=== PATIENT | female | born 1980 | race Caucasian/White ===

== ENCOUNTER 2017-07-10 17:04 | Inpatient (IN) ==
[2017-07-10] MEDS: NS 1,000 ML IV SCH (19:52)
[2017-07-10] MEDS: PHENERGAN IV PRN (19:52)
[2017-07-10] MEDS: DEMEROL IV PRN (19:52)
[2017-07-10] MEDS: PROTONIX IV SCH (19:56)
[2017-07-10] MEDS: SODIUM CHLORIDE 0.9% INJ SCH (19:56)
[2017-07-10 22:26] LABS: MANUAL DIFF NEEDED? NO
[2017-07-10 22:33] LABS: BASO% 0.1 % (0.0-0.8); EOS# 0.11 X1000 (0.0-0.7); EOS% 0.8 % (0.0-10.0); HEMATOCRIT 36.8 % (37.0-47.0); HEMOGLOBIN 12.4 g/dL (12.0-16.0); IMM GRAN# 0.04 X1000 (0.0-0.04); IMM GRAN% 0.3 % (0.0-0.5); LYMPH# 5.51 X1000 (1.2-3.4); LYMPH% 41.2 % (20.5-51.1); MCH 30.8 PG (27-31); MCHC 33.7 g/dL (33-37); MCV 91.3 FL (81-99); MONO# 0.71 X1000 (0.11-0.59); MONO% 5.3 % (1.7-9.3); MPV 9.3 FL (7.4-10.4); NEUT% 52.3 % (42.2-75.2); PLT 323 X1000 (130-400); RBC 4.03 XMIL (4.2-5.4)
[2017-07-10 22:53] LABS: AGAP 14; ALBUMIN 4.1 g/dL (3.5-5.0); ALKALINE PHOSPHATASE 99 U/L (32-104); AMYLASE 32 U/L (20-200); BUN 11 mg/dL (8-22); CALCIUM 8.6 mg/dL (8.8-10.2); CHLORIDE 105 mmol/L (98-107); COSMO 283; GOT 63 U/L (10-30); GPT 112 U/L (10-36); POTASSIUM 3.9 mmol/L (3.5-5.1); SODIUM 143 mmol/L (136-145); TCO2 24 mmol/L (25-35); TOTAL BILIRUBIN 0.25 mg/dL (0.20-1.00); TOTAL PROTEIN 7.3 g/dL (6.3-8.3)
--- NOTE | 2017-07-10 22:53 | HISTORY AND PHYSICAL ---
CHIEF COMPLAINT: Intractable nausea, vomiting, abdominal pain, throwing up blood, black, melanotic stool. HISTORY OF PRESENT ILLNESS: She is a 35-year-old white female who was brought in my office with the mother with above symptoms. She recently was seen by Dr. Ordonez for kidney stones on the left side. Basically admitted to the hospital with evaluation of abdominal pain as well as rule out GI bleeding. She was seen before by Dr. Anat Archer. PAST MEDICAL HISTORY: Metabolic syndrome, chronic leukocytosis, acid reflux disease, surgical menopause, chronic pelvic floor dysfunction, irritable bowel syndrome with constipation, incontinence of urine, history of substance abuse, noncompliance, kidney stones recently by Dr. Ordonez. PAST SURGICAL HISTORY: Complete hysterectomy, breast reduction, cystocele repair, InterStim placement, failed, x1, port on the right side, previous colonoscopy/ EGD, by Dr. Alvarado and a history of lithotripsy on the left side. MEDICATIONS: Estradiol 2 mg daily, warfarin 1 mg daily, Linzess 290 mcg daily, Seroquel 200 mg at bedtime, Zebeta 5 mg daily, Prilosec 40 daily, Trileptal 300 p.o. b.i.d., Phenergan as needed. ALLERGIES: Reglan. Toradol. Morphine. SOCIAL HISTORY: . 1 child. No smoking. No alcohol. Living with her mother off and on. Now lives in [place]. FAMILY HISTORY: Mom is alive with diabetes. Father had hypertension, diabetes, acid reflux disease. REVIEW OF SYSTEMS: HEENT: No headache. No vision problem. No earache. No sore throat. Neck: No goiter. No lymphadenopathy. No bruit. Cardiopulmonary: No chest pain, shortness of breath, PND, orthopnea. GI: History of nausea, abdominal pain, throwing up blood, black melanotic stool. : No history of hesitancy, frequency. History of kidney stones. Extremities: No swelling of feet. No joint pains. Neurologic: No focal symptoms or weakness. PHYSICAL EXAMINATION: VITAL SIGNS: Afebrile. Hemodynamics are stable, 4 feet 11, 130 pounds. HEENT: Atraumatic, normocephalic. Pupils equal, reacting to light. NECK: Supple. CHEST: Clear to auscultation. HEART: Sounds are regular. ABDOMEN: Belly is soft, nontender. Good bowel sounds. No masses palpable. No signs of peritonitis. EXTREMITIES: No peripheral edema, cyanosis. NEUROLOGIC: No obvious neurological deficits. ASSESSMENT AND PLAN: 1. A 36-year-old, white female, admitted to the hospital with GI symptoms, possible upper gastrointestinal bleeding, impending dehydration. Plan is CBC, comprehensive metabolic and amylase. Nothing per oral. 2. IV fluids. DVT prophylaxis with Lovenox. Gastrointestinal prophylaxis, IV Protonix. Symptomatic treatment. Phenergan for nausea, meperidine for pain and slowly reconcile home medications. We will follow up on the pending labs. Based on that, further recommendations will be followed. cc: Esequiel Mckinnon MD
[2017-07-11] MEDS: PHENERGAN IV PRN ×4 (01:45→20:24)
[2017-07-11] MEDS: DEMEROL IV PRN ×4 (01:45→20:23)
[2017-07-11] MEDS: LOVENOX SUBQ SCH (08:13)
[2017-07-11] MEDS: NS 1,000 ML IV SCH (08:24)
[2017-07-11] MEDS: SODIUM CHLORIDE 0.9% INJ SCH (20:22)
[2017-07-11] MEDS: PROTONIX IV SCH (20:22)
[2017-07-12] MEDS: NS 1,000 ML IV SCH ×2 (00:25→13:11)
[2017-07-12] MEDS: PHENERGAN IV PRN ×4 (02:32→18:27)
[2017-07-12] MEDS: DEMEROL IV PRN ×4 (02:32→20:04)
--- NOTE | 2017-07-12 05:11 | PROGRESS NOTE ---
DATE: 07/11/2017 SUBJECTIVE: Patient complains of nausea and vomiting. REVIEW OF SYSTEMS: None reported. OBJECTIVE: Vital signs: On examination, vital signs are stable. I/O's are even. HEENT: Within normal limits. Neck: Supple. Chest: Clear. Heart: Sounds are regular. Abdomen: Belly is soft, nontender. Good bowel sounds. No masses palpable. No peripheral edema, cyanosis. No obvious neurological deficits. INVESTIGATIONS: CBC, white cell count 13, hematocrit 36. SMA 7 is normal. LFTs are slightly high. Amylase was normal. ASSESSMENT AND PLAN: Nausea, vomiting, abdominal pain, and questionable bleeding: Clinical exam is benign. Symptoms are out of proportion to the objective findings. Continue to monitor CBC, SMA 7 for the next few days. Continue to keep on nothing by mouth with IV hydration except for popsicles. Deep vein thrombosis prophylaxis with Lovenox and Phenergan for nausea. LEVEL OF DOCUMENTATION: Fifteen minutes. cc: Esequiel Mckinnon MD
[2017-07-12 06:47] LABS: MANUAL DIFF NEEDED? NO
[2017-07-12 06:51] LABS: BASO% 0.2 % (0.0-0.8); EOS# 0.18 X1000 (0.0-0.7); HEMATOCRIT 35.3 % (37.0-47.0); HEMOGLOBIN 12.1 g/dL (12.0-16.0); IMM GRAN# 0.02 X1000 (0.0-0.04); IMM GRAN% 0.2 % (0.0-0.5); LYMPH# 4.88 X1000 (1.2-3.4); MCH 31.4 PG (27-31); MCHC 34.3 g/dL (33-37); MCV 91.7 FL (81-99); MONO# 0.58 X1000 (0.11-0.59); MONO% 6.5 % (1.7-9.3); MPV 9.4 FL (7.4-10.4); NEUT% 36.1 % (42.2-75.2); PLT 275 X1000 (130-400); RBC 3.85 XMIL (4.2-5.4)
[2017-07-12 07:07] LABS: AGAP 11; BUN 7 mg/dL (8-22); CALCIUM 8.3 mg/dL (8.8-10.2); CHLORIDE 107 mmol/L (98-107); COSMO 281; POTASSIUM 3.9 mmol/L (3.5-5.1); SODIUM 143 mmol/L (136-145); TCO2 25 mmol/L (25-35)
[2017-07-12] MEDS: LOVENOX SUBQ SCH (08:07)
--- NOTE | 2017-07-12 09:01 | Diag Imaging Result Doc PS360 ---
EXAM: ABDOMEN FLAT/UPRIGHT HISTORY: pain TECHNIQUE: Flat and upright abdomen COMMENT: There is a fairly large amount of stool in the ascending colon. This is actually improved since 05/02/2017 however. There is no evidence of organomegaly or mass. The stomach is not distended. IMPRESSION: Improved constipation since 05/02/2017. Electronically signed by Gian Little 07/12/2017 8:58 AM
[2017-07-12] MEDS: PROTONIX IV SCH (20:04)
[2017-07-12] MEDS: SODIUM CHLORIDE 0.9% INJ SCH (20:04)
[2017-07-13] MEDS: NS 1,000 ML IV SCH ×2 (01:44→15:28)
[2017-07-13] MEDS: PHENERGAN IV PRN ×4 (02:22→20:47)
[2017-07-13] MEDS: DEMEROL IV PRN ×4 (02:23→20:47)
[2017-07-13 06:29] LABS: MANUAL DIFF NEEDED? NO
[2017-07-13 06:35] LABS: BASO% 0.2 % (0.0-0.8); EOS# 0.19 X1000 (0.0-0.7); EOS% 2.1 % (0.0-10.0); HEMATOCRIT 36.3 % (37.0-47.0); HEMOGLOBIN 12.1 g/dL (12.0-16.0); IMM GRAN# 0.02 X1000 (0.0-0.04); IMM GRAN% 0.2 % (0.0-0.5); LYMPH% 53.8 % (20.5-51.1); MCH 30.7 PG (27-31); MCHC 33.3 g/dL (33-37); MCV 92.1 FL (81-99); MONO# 0.64 X1000 (0.11-0.59); MPV 9.3 FL (7.4-10.4); NEUT% 36.7 % (42.2-75.2); PLT 287 X1000 (130-400); RBC 3.94 XMIL (4.2-5.4)
[2017-07-13 06:53] LABS: AGAP 10; BUN 3 mg/dL (8-22); CALCIUM 8.4 mg/dL (8.8-10.2); CHLORIDE 107 mmol/L (98-107); COSMO 280; POTASSIUM 3.6 mmol/L (3.5-5.1); SODIUM 143 mmol/L (136-145); TCO2 26 mmol/L (25-35)
[2017-07-13] MEDS: LOVENOX SUBQ SCH (08:05)
--- NOTE | 2017-07-13 11:50 | PROGRESS NOTE ---
DATE: 07/13/2017 The patient's electrolytes and CBC are unremarkable. Vital signs are stable. She moved her bowels today. Abdomen is soft and slightly tender in the right para umbilical area. She tolerated the clear liquids and we will put her on full liquids today. -9 cc: MD Esequiel Artis MD
[2017-07-13 18:21] LABS: ALKALINE PHOSPHATASE 107 U/L (32-104); AMYLASE 31 U/L (20-200); DIRECT BILIRUBIN < 0.20 mg/dL (0.00-0.20); GOT 104 U/L (10-30); GPT 166 U/L (10-36); LIPASE 14 U/L (13-60); TOTAL BILIRUBIN 0.13 mg/dL (0.20-1.00); TOTAL PROTEIN 7.1 g/dL (6.3-8.3)
[2017-07-13] MEDS: PROTONIX IV SCH (18:43)
--- NOTE | 2017-07-13 19:18 | Diag Imaging Result Doc PS360 ---
EXAM: CT ABDOMEN W/CONTRAST HISTORY: worsening abd pain TECHNIQUE: CT of the abdomen with intravenous and oral contrast and dose reduction (clarity.) COMMENT: There is minimal subsegmental atelectasis in the lung bases. The spleen adrenal glands pancreas and kidneys and liver are unremarkable in appearance. There is been cholecystectomy. There is some fluid in the ascending colon. The small bowel is not distended. There is some contrast in the terminal ileum. There has been previous appendectomy. The visualized portion of the urinary bladder is unremarkable if somewhat distended. The left colon is not distended at where it is is normal in appearance. There is no significant adenopathy or free fluid. There is a bladder pacemaker passing through the right sacrum. There is a small amount of free fluid in the cul-de-sac. IMPRESSION: Possibility of enterocolitis cannot be excluded. Mild distention of the urinary bladder. Electronically signed by Gian Little 07/13/2017 7:15 PM
[2017-07-13] MEDS: DULCOLAX PR SCH (20:46)
[2017-07-14] MEDS: DEMEROL IV PRN ×4 (02:57→21:15)
[2017-07-14] MEDS: PHENERGAN IV PRN ×4 (02:58→21:15)
[2017-07-14] MEDS: NS 1,000 ML IV SCH ×2 (03:30→15:34)
--- NOTE | 2017-07-14 03:38 | PROGRESS NOTE ---
DATE: 07/12/2017 SUBJECTIVE: Ms. Lo has gastroparesis. OBJECTIVE: Plain x-ray of the abdomen shows improved constipation. Her white count has come down from 13.39 to 8.87. Vital signs are stable. Overall condition is unchanged. She has been followed. Her GI physician is Dr. Archer who has not seen her this time; however, if need comes, I will do the consultation. She says is improving. We will put her on clear liquids today. -2 cc: MD Esequiel Artis MD
[2017-07-14] MEDS: PROTONIX IV SCH ×2 (05:45→18:18)
[2017-07-14] MEDS: SODIUM CHLORIDE 0.9% INJ SCH ×5 (05:45→21:15)
[2017-07-14 06:35] LABS: MANUAL DIFF NEEDED? NO
[2017-07-14 06:47] LABS: BASO% 0.2 % (0.0-0.8); EOS# 0.25 X1000 (0.0-0.7); EOS% 2.7 % (0.0-10.0); HEMATOCRIT 36.3 % (37.0-47.0); HEMOGLOBIN 12.2 g/dL (12.0-16.0); IMM GRAN# 0.02 X1000 (0.0-0.04); IMM GRAN% 0.2 % (0.0-0.5); LYMPH# 5.02 X1000 (1.2-3.4); LYMPH% 54.9 % (20.5-51.1); MCH 30.7 PG (27-31); MCHC 33.6 g/dL (33-37); MCV 91.4 FL (81-99); MONO# 0.59 X1000 (0.11-0.59); MONO% 6.4 % (1.7-9.3); MPV 9.5 FL (7.4-10.4); NEUT% 35.6 % (42.2-75.2); PLT 289 X1000 (130-400); RBC 3.97 XMIL (4.2-5.4)
[2017-07-14 06:57] LABS: AGAP 12; BUN 4 mg/dL (8-22); CALCIUM 8.8 mg/dL (8.8-10.2); CHLORIDE 104 mmol/L (98-107); COSMO 280; POTASSIUM 3.9 mmol/L (3.5-5.1); SODIUM 143 mmol/L (136-145); TCO2 27 mmol/L (25-35)
[2017-07-14] MEDS: DULCOLAX PR SCH ×2 (09:04→21:15)
[2017-07-14] MEDS: LOVENOX SUBQ SCH (09:06)
[2017-07-14] MEDS: CULTURELLE PO SCH ×2 (09:10→21:14)
--- NOTE | 2017-07-14 14:54 | PROGRESS NOTE ---
DATE: 07/14/2017 SUBJECTIVE: The patient still complains of nausea. No constipation. Tolerating clear liquids. She wants Seroquel for sleep. The patient had a CT of the abdomen and pelvis. REVIEW OF SYSTEMS: None reported. PHYSICAL EXAMINATION: Vital Signs: On examination she is afebrile. Her vital signs are stable. HEENT: Within normal limits. Neck: Supple. Chest: Clear. Heart: Sounds are regular. Abdomen: Belly is soft, nontender. Good bowel sounds. No peripheral edema. No obvious neurological deficits. INVESTIGATIONS: CBC: White cell count 9.1, hematocrit 36, platelets 289. SMA-7: Sodium 143, potassium 3.9, chloride 104, BUN 4, creatinine 0.7, glucose 71, calcium 8.8. Increased LFTs. CT scan of the abdomen and pelvis on 07/13/2017, possible enterocolitis and mildly distended bladder. ASSESSMENT AND PLAN: 1. Nausea, vomiting, abdominal pain, chronic. Previous workup was negative. Probably gastroparesis and constipation. Start with liquids. 2. Insomnia. Seroquel 100 at bedtime. 3. Deep vein thrombosis and gastrointestinal prophylaxis as directed. 4. Continue the intravenous fluids, advance the diet slowly as tolerated, and if she does fine, she will be discharged in the morning. There are no signs of any GI bleeding noted. LEVEL OF DOCUMENTATION: 15 minutes. cc: Esequiel Mckinonn MD
--- NOTE | 2017-07-14 16:39 | CONSULTATION ---
DATE OF CONSULTATION: 07/14/2017 PRIMARY CARE DOCTOR: Dr. Esequiel Mckinnon PRIMARY SUPERVISOR PERSONNEL CLERKS: Dr. Archer. REASON FOR CONSULTATION: Abdominal pain. HISTORY OF PRESENT ILLNESS: Ms. Lo is a 36-year-old female with a history of early liver cirrhosis, chronic constipation, gastroparesis and was being followed by Dr. Archer as an outpatient. She had a recent EGD and colonoscopy done within the last year or so per the patient. She has been admitted on 07/10/2017 with intractable nausea, vomiting, abdominal pain, and throwing up blood with black melanotic stools. She was being treated with IV PPIs and bowel rest. But yesterday, she started complaining of worsening abdominal pain in the periumbilical region radiating to the back. She had a CT scan of the abdomen and pelvis done which showed evidence of possible fluid in the right colon and cannot rule out enterocolitis. The patient has had chronic constipation and is taking Linzess 290 mcg every day. She had a history of bladder mesh placement which was removed and according to her that caused her scar tissue in her intestines. She also has history of chronic gastroparesis of unclear etiology and she could not tolerate Reglan. She has had elevated liver enzymes in the past which on liver biopsy showed early fibrosis and she is being monitored by Dr. Archer as an outpatient. She denies any vomiting blood over the hospital course and denies any blood in the stools. PAST MEDICAL HISTORY: 1. Metabolic syndrome. 2. Chronic leukocytosis. 3. Reflux disease. 4. Surgical menopause. 5. Chronic pelvic floor dysfunction. 6. Irritable bowel syndrome with constipation. 7. Incontinence of urine. 8. Kidney stones with recent surgery by Dr. Ordonez but the CT scan done yesterday did not show any remnant kidney stones. PAST SURGICAL HISTORY: Complete hysterectomy, breast reduction, cystocele repair, anterior stent placement failed, x1. Port on the right side. Previous EGD, colonoscopy by Dr. Alvarado. History of lithotripsy on that side. ALLERGIES: Reglan, Toradol, morphine. SOCIAL HISTORY: She is . She has 1 child. She denies any smoking or alcohol. She lives with her mother off and on. She now lives in [place]. FAMILY HISTORY: Father had hypertension, diabetes, streptococcal disease. Mother is alive with diabetes. REVIEW OF SYSTEMS: Denies any recurrent fevers, rigors, chills, chest pain, shortness of breath, dyspnea. Denies any genitourinary complaints. Denies any vomiting blood during the last 24 hours. Denies any blood in the stool or black stools in the last 24 hours. She denies any new neurologic complaints. She does have chronic arthritis. She has a history of urinary incontinence. She has a history of chronic constipation and diverticulitis or diverticulosis and irritable bowel syndrome and gastroparesis. MEDICATIONS IN THE HOSPITAL: 1. IV fluids normal saline at 80 mL/h. 2. Bisacodyl 10 mg per rectal b.i.d. 3. Lovenox 40 mg subcu to 24 hours. 4. Lactobacillus 1 capsule p.o. b.i.d. 5. Demerol 25 mg every 6 hours as needed. 6. Protonix IV b.i.d. 7. Phenergan 12.5 mg to 25 mg every 4 hours as needed 8. Seroquel 100 mg p.o. at bedtime. 9. She is given a clear liquid diet. PHYSICAL EXAMINATION: Vital Signs: Temperature of 97.6, pulse rate of 86, respiratory rate 16, blood pressure 130/85, saturating 98% room air. Body weight of 130 pounds, BMI 26.3 kg. General: Moderately built, moderately nourished, lying in bed, in no acute distress. HEENT: Mild pallor. No icterus. Pupils equal, react to light. Neck: Supple. Chest: Decreased breath sounds at the bases. Cardiovascular: Regular rhythm. Abdomen: Mildly protuberant and tympanic on percussion. No guarding or rebound. Bowel sounds present. Extremities: No cyanosis, clubbing , edema. Neurologic: She is alert, awake, oriented. LABORATORY: Hemoglobin and hematocrit 12.2, 36.3, white count 9.15, platelet count of 289,000. MCV of 91.4, sodium 140, potassium 3.9, chloride 104, bicarbonate 20, anion gap 12, BUN of 4, creatinine 0.7, glucose of 71, calcium is 8.8. AST 104, ALT 166, alkaline phosphatase 107, total protein 7.1, albumin of 4, amylase of 31, lipase of 14. N Abdominal CT scan done yesterday showed possibility of enterocolitis cannot be excluded. Mild distention of the urinary bladder. There is minimal subsegmental atelectasis in lung bases. There is some fluid in the ascending colon. The small bowel is not dilated. There is some contrast in the terminal ileum. There has been a prior appendectomy. There is a bladder pacemaker passing through the right sacrum. There is a small amount of free fluid in the cul de sac. Prior to that, she had abdominal x-ray on 07/12/2017 which showed improved constipation, fairly large amount of stool in the ascending colon was noted at that time. Stool studies: Stool studies for white cells none seen. Ova and parasites pending. Clostridium difficile toxin negative. Clostridium difficile antigen negative and stool cultures pending. PLAN: 1. Irritable bowel syndrome with constipation, which is improved. 2. Abdominal pain, chronic colitis secondary to irritable bowel syndrome and scar tissue from prior surgeries. 3. History of kidney stones. Recent surgery by Dr. Ordonez. 4. Elevated liver enzymes of unclear etiology. 5. Gastroparesis. RECOMMENDATIONS: 1. We will keep her on a liquid diet for now. We will continue on IV PPIs. We will keep her on a bowel regimen with Dulcolax. I will keep her on probiotics with Culturelle 1 capsule p.o. b.i.d. 2. Hematocrit is stable. Her liver and her amylase and lipase is negative and CT scan does not show any acute pathology. 3. She needs to have chronic liver disease workup for elevated liver enzymes. I will defer to Dr. Archer to pursue that as the patient has been worked up in the past for possible liver cirrhosis. Will check Acute hepatitis panel, [place].In the meanwhile, I encouraged patient to be on high fiber diet and avoid any NSAIDs and follow gastroesophageal reflux changes and take small frequent meals to help with the gastroparesis. 4. Further recommendations to follow pending cultures. Dr. plunkett doctor Yrn Dr. he has decreased. cc: MD Maxi Boudreaux MD Manish Arora, MD Jagan Reddy, MD MTDD
[2017-07-14] MEDS: SEROQUEL PO SCH (21:14)
[2017-07-15] MEDS: NS 1,000 ML IV SCH ×4 (03:23→21:17)
[2017-07-15] MEDS: DEMEROL IV PRN ×4 (03:23→21:13)
[2017-07-15] MEDS: SODIUM CHLORIDE 0.9% INJ SCH ×4 (03:24→21:25)
[2017-07-15] MEDS: PHENERGAN IV PRN ×4 (03:24→21:13)
[2017-07-15] MEDS: PROTONIX IV SCH ×2 (05:55→21:25)
[2017-07-15] MEDS: CULTURELLE PO SCH ×2 (09:19→21:16)
[2017-07-15] MEDS: LOVENOX SUBQ SCH (09:20)
[2017-07-15] MEDS: DULCOLAX PR SCH ×2 (09:21→21:17)
[2017-07-15 10:23] LABS: HEPATITIS PROFILE ACUTE SEE COMMENTS
--- NOTE | 2017-07-15 13:48 | PROGRESS NOTE ---
DATE: 07/15/2017 REFERRING PHYSICIAN: Pato Mckinnon M.D. SUBJECTIVE: The patient states that she continues to have abdominal pain. She is a 36-year-old female who has been followed in our clinic for cirrhosis secondary to fatty liver with negative hepatitis profiles in the past, chronic constipation, gastroparesis and chronic abdominal pain. She was admitted on 07/10/2017 with nausea with vomiting, coffee-grounds emesis and melenic stools. She reports worsening right upper quadrant pain despite IV PPI therapy and bowel rest. She now reports right upper quadrant pain and periumbilical pain. Her CT scan is positive for fluid in the right colon and possible enterocolitis. She has a history of chronic constipation requiring Linzess therapy every day. She has been lost to follow up for several months secondary to her finances and insurance concerns. Her main concern today is her inability to eat. She reports severe nausea and right upper quadrant pain that became worse after she had eaten her noontime meal. She was scheduled to be discharged today with plans for outpatient endoscopic evaluation. However, after she ate lunch, she developed severe nausea and right upper quadrant pain. We are asked to assist in her evaluation. On exam, her blood pressure is 145/77, pulse 75, respiration 18, temperature of 98.0 degrees.Abdominal: Remarkable for moderate epigastric and right upper quadrant tenderness. She also has evidence of central adiposity. OBJECTIVE DATA: Reveals labs from 07/14/2017 reveals a hemoglobin 12.2, hematocrit of 36.3, and a white count of 9.15. She has 289,000 platelets. Sodium is 143, potassium 3.9, chloride 104, CO2 27, BUN 4, creatinine 0.7 with a glucose of 71. Her calcium is 8.8. Her [place] screen is negative. Her hepatitis profile is positive for hepatitis C which is an interval change since her last hepatitis profile approximately 9 months ago. IMPRESSION: 1. Nausea with vomiting. 2. Hematemesis. 3. Melena. 4. Epigastric right upper quadrant pain. 5. Newly diagnosed hepatitis C. 6. Central morbid obesity. RECOMMENDATION: 1. I recommend cancelling her hospital discharge. 2. I recommend checking stat labs today to assess her liver function as well as processing the necessary labs in anticipation of treating her newly diagnosed hepatitis C. 3. I will plan to perform an EGD in the morning. She will need an outpatient colonoscopy as I doubt that she is able to tolerate her bowel prep at this time. 4. Given that the patient has enterocolitis on CT scan, I recommend a 10 day course of antibiotics including Levaquin and Flagyl. I will begin the antibiotics following her EGD in the morning. 5. I agree with the Culturelle which I would continue. 6. Continue Protonix 40 mg IV q.12 hours pending endoscopic evaluation. 7. Additional recommendations to follow based on her clinical course. cc: MD Esequiel Boudreaux MD MTDD
[2017-07-15 14:28] LABS: MANUAL DIFF NEEDED? NO
[2017-07-15 14:42] LABS: BASO% 0.2 % (0.0-0.8); EOS# 0.22 X1000 (0.0-0.7); EOS% 2.4 % (0.0-10.0); HEMATOCRIT 36.4 % (37.0-47.0); HEMOGLOBIN 12.2 g/dL (12.0-16.0); LYMPH# 5.09 X1000 (1.2-3.4); LYMPH% 55.8 % (20.5-51.1); MCH 30.7 PG (27-31); MCHC 33.5 g/dL (33-37); MCV 91.5 FL (81-99); MONO# 0.51 X1000 (0.11-0.59); MONO% 5.6 % (1.7-9.3); MPV 9.5 FL (7.4-10.4); PLT 273 X1000 (130-400); RBC 3.98 XMIL (4.2-5.4)
[2017-07-15 14:44] LABS: PROTIME 10.5 Seconds (9.2-11.7)
[2017-07-15 14:54] LABS: AGAP 12; ALBUMIN 4.1 g/dL (3.5-5.0); ALKALINE PHOSPHATASE 117 U/L (32-104); BUN 4 mg/dL (8-22); CHLORIDE 105 mmol/L (98-107); COSMO 277; GOT 103 U/L (10-30); GPT 175 U/L (10-36); POTASSIUM 4.3 mmol/L (3.5-5.1); SODIUM 141 mmol/L (136-145); TCO2 24 mmol/L (25-35); TOTAL BILIRUBIN 0.18 mg/dL (0.20-1.00); TOTAL PROTEIN 7.6 g/dL (6.3-8.3)
[2017-07-15 15:33] LABS: UR AMPHETAMINES QUAL NONE DETECTED (NONE DETECT); UR BARBITUATES QUAL NONE DETECTED (NONE DETECT); UR BENZODIAZEPIN QUAL NONE DETECTED (NONE DETECT); UR CANNABINOIDS QUAL NONE DETECTED (NONE DETECT); UR COCAINE QUAL NONE DETECTED (NONE DETECT); UR METHADONE QUAL NONE DETECTED (NONE DETECT); UR OPIATES QUAL NONE DETECTED (NONE DETECT); UR OXYCODONE QUAL NONE DETECTED (NONE DETECT); UR PCP QUAL NONE DETECTED (NONE DETECT)
--- NOTE | 2017-07-15 18:12 | PROGRESS NOTE ---
DATE: 07/15/2017 SUBJECTIVE: The patient complains of nausea, and seen by Dr. Osorio. Elevated LFTs. Dr. Archer wants to do an EGD. Initially, wants to go home this afternoon. REVIEW OF SYSTEMS: Other than GI symptoms. PHYSICAL EXAMINATION: Vital Signs: Stable. HEENT: Within normal limits. Neck: Supple. No lymphadenopathy. Chest: Clear to auscultation. Heart: Sounds are regular. Abdomen: Belly is soft, nontender. Good bowel sounds. No masses palpable. extremities: No peripheral edema or cyanosis. neurologic: No obvious neurological deficits. INVESTIGATIONS: CBC is normal. SMA-7 is normal. LFTs are persistently high, and [place] screen was negative. Hepatitis panel was positive for hepatitis C antibody. ASSESSMENT AND PLAN: 1. Elevated liver function tests due to hepatitis C antibody. Dr. Archer is working for genotype and viral load. 2. Upper gastrointestinal symptoms, nausea and vomiting. No signs of active bleeding. Schedule for EGD in the morning. We will hold the discharge and will follow up. LEVEL OF DOCUMENTATION: 15 minutes. cc: Esequiel Mckinnon MD
[2017-07-15] MEDS: SEROQUEL PO SCH (21:16)
[2017-07-15] MEDS: CATAPRES PO PRN (22:25)
[2017-07-16] MEDS: PHENERGAN IV PRN ×3 (03:57→19:00)
[2017-07-16] MEDS: DEMEROL IV PRN ×3 (03:57→19:00)
[2017-07-16] MEDS: PROTONIX IV SCH ×2 (04:57→19:03)
[2017-07-16] MEDS ORDERED: FENTANYL ONE (07:27)
[2017-07-16] MEDS ORDERED: DIPRIVAN 1% ONE ×2 (07:28→08:11)
[2017-07-16] MEDS ORDERED: XYLOCAINE-MPF 2% ONE ×2 (07:28→07:48)
[2017-07-16] MEDS: SODIUM CHLORIDE 0.9% INJ SCH ×2 (09:45→19:03)
[2017-07-16] MEDS: CULTURELLE PO SCH ×2 (09:53→21:15)
[2017-07-16] MEDS: DULCOLAX PR SCH ×2 (10:10→21:16)
[2017-07-16 10:34] LABS: HIV ANTIBODY SCREEN SEE COMMENTS
[2017-07-16] MEDS: NS 1,000 ML IV SCH (12:07)
--- NOTE | 2017-07-16 18:07 | Diag Imaging Result Doc PS360 ---
EXAM: GASTRIC EMPTYING - 07/16/2017 HISTORY: nausea with vomiting TECHNIQUE: Exam performed using 400 uCi technetium 99m sulfur colloid administered by mouth in oatmeal. COMPARISON: None. FINDINGS: The gastric imaging half-time is 89 minutes. This is at the upper range of normal for gastric imaging half-time, with the normal range being 40 to 90 minutes. IMPRESSION: Upper normal gastric emptying half-time at 89 minutes. Electronically signed by Rich Bernstein 07/16/2017 6:04 PM
--- NOTE | 2017-07-16 18:34 | PROGRESS NOTE ---
DATE: 07/16/2017 SUBJECTIVE: Dr. Anat Archer did the EGD this morning. Nothing is remarkable. The patient has elevated LFTs, positive hepatitis C, HIV was negative. Waiting for genotype and viral load. REVIEW OF SYSTEMS: None reported. OBJECTIVE: Vital signs: Stable. HEENT: Atraumatic, normocephalic. Pupils equal, reactive to light. Neck: Supple. Chest: Clear. Cardiac: Heart sounds are regular. Belly: Soft, obese, nontender. Good bowel sounds. No masses palpable. Neurologic: No neurological deficits. IMPRESSION: 1. Nausea and vomiting. EGD findings with no active bleeding noted. 2. Elevated LFTs with recent hepatitis C. Follow up on genotype and viral load. Consider liver biopsy. Will be arranged in the morning. Will hold the discharge. HIV was negative. Based on the biopsy, further recommendations will follow. LEVEL OF DOCUMENTATION: Fifteen minutes. Once again, thanks for Dr. Anat Archer's input. cc: Esequiel Mckinnon MD
[2017-07-16] MEDS: SEROQUEL PO SCH (21:15)
[2017-07-16] MEDS: CATAPRES PO PRN (21:19)
[2017-07-17] MEDS: DEMEROL IV PRN ×5 (00:56→23:59)
[2017-07-17] MEDS: SODIUM CHLORIDE 0.9% INJ SCH ×2 (00:56→05:19)
[2017-07-17] MEDS: PHENERGAN IV PRN ×5 (00:57→23:59)
[2017-07-17] MEDS: NS 1,000 ML IV SCH ×3 (01:02→16:23)
[2017-07-17] MEDS: PROTONIX IV SCH ×2 (05:19→17:08)
--- NOTE | 2017-07-17 06:38 | OPERATIVE NOTE ---
PROCEDURE DATE: 07/16/2017 REFERRING PHYSICIAN: Pato Mckinnon M.D. INDICATIONS FOR PROCEDURE: 1. Chronic nausea with vomiting. 2. Right upper quadrant pain. 3. Hematemesis. 4. Recent diagnosis of hepatitis C. PROCEDURE PERFORMED: Esophagogastroduodenoscopy. CONSENT: Informed consent was obtained from the patient prior to the procedure. The risks, benefits, and alternatives were discussed. MEDICATION: The patient received monitored anesthesia care. PERFORMING PHYSICIAN: Anat Archer M.D. ASSISTANTS: 1. [facility] 2. Teresita Lambert RN. 3. Rebecca Espinal CRNA. 4. Oscar Reynolds M.D. (Anesthesia) COMPLICATIONS: There were no complications. ESTIMATED BLOOD LOSS: None. SPECIMENS REMOVED: None. FINDINGS: After sedation was achieved, the upper endoscope was inserted to the 2nd portion of the duodenum. The hypopharynx and tubular esophagus appeared normal. The GE junction was normal at 35 cm from the incisors. There was no evidence of esophageal varices or Hernandez 's esophagus. In the gastric lumen, there was greater than 200 mL of fluid removed from the fundus. After evacuation, there were changes suggestive of possible portal gastropathy. In the antrum, there were mild nonerosive streaks of erythema consistent with nonerosive gastritis. The stomach was otherwise unremarkable. The pylorus appeared normal. The 1st and 2nd portion of the duodenum appeared normal. It should be noted, throughout the procedure, the patient had active bile reflux from the duodenum. There was also bile staining in the distal esophagus that was found after an episode of bile reflux through the pylorus that was witnessed. After the exam was complete, the lumen was decompressed and the scope was removed without incident. IMPRESSION: 1. Gastric stasis. 2. Portal gastropathy, possible. 3. Mild nonerosive gastritis in the antrum. 4. Normal duodenum. 5. Active bile reflux to the distal esophagus. RECOMMENDATION: 1. We will obtain stool studies to check for H pylori. 2. The patient was recently diagnosed with hepatitis C. This exam does not account for the right upper quadrant pain. It is reasonable to repeat her liver biopsy. She has a known history of [place] with significant fibrosis diagnosed in 2014 but no cirrhosis. She failed to return for follow-up. 3. I will also obtain a dedicated abdominal ultrasound for reassessment of her liver disease in light of the new diagnosis of hepatitis C. 4. I will check a gastric emptying study. 5. Continue Protonix IV at 40 mg q.12 hours. Once she is ready for discharge, I would transition her to omeprazole 40 mg daily. 6. We await the hepatitis C test results. Her HIV testing was negative. 7. Additional recommendations to follow based on the results of her evaluation. cc: MD Esequiel Boudreaux MD MTDD
[2017-07-17] MEDS: DULCOLAX PR SCH ×2 (09:42→20:36)
[2017-07-17] MEDS: CULTURELLE PO SCH ×2 (09:42→20:36)
--- NOTE | 2017-07-17 12:01 | Diag Imaging Result Doc PS360 ---
US GB < RUQ (LIMITED) - 07/17/2017 INDICATION: newly diagnosed Hep C, elevated LFT TECHNIQUE: COMPARISON: 07/13/2017 FINDINGS: The liver is mildly hyper echogenic compatible with fatty change. No liver masses. The gallbladder is surgically absent. Pancreas and right kidney are normal. Common bile duct measures 5 mm. Aorta IVC and main portal vein are patent. IMPRESSION: Mild fatty change of the liver. Otherwise unremarkable. Electronically signed by Nicho Luis 07/17/2017 11:59 AM
--- NOTE | 2017-07-17 12:02 | Diag Imaging Result Doc PS360 ---
US LIVER BIOPSY - 07/17/2017 INDICATION: newly diagnosed Hep C, known QU[place]TA[place], elevated LFTs TECHNIQUE: The risks and benefits of the procedure were discussed with the patient. All questions were answered. Written and verbal informed consent was obtained. Overlying skin was prepped and draped in sterile fashion. Anesthesia was achieved with injection of 10 cc of 1% lidocaine. COMPARISON: None FINDINGS: The 18-gauge 9 cm Temno biopsy needle was advanced without difficulty and three biopsy specimens were obtained. The needle was removed intact. The patient reported no symptoms from the procedure. IMPRESSION: Successful and on collocated ultrasound-guided liver biopsy. Electronically signed by Nicho Luis 07/17/2017 12:00 PM
--- NOTE | 2017-07-17 19:22 | PROGRESS NOTE ---
DATE: 07/17/2017 SUBJECTIVE: Patient is doing very well. I appreciate Dr. Archer's input. She had EGD and gastric emptying studies. Elevated LFTs due to recent hepatitis C antibody positive. REVIEW OF SYSTEMS: None reported. OBJECTIVE: Vital Signs: Stable. HEENT Examination: Within normal limits. Neck: Supple. Chest: Clear. Heart: Sounds are regular. Abdomen: Belly is soft, nontender. Good bowel sounds. ASSESSMENT AND PLAN: Elevated liver function tests. Hepatitis C antibody positive. Follow up on viral genotype and viral load. Liver biopsy scheduled today and findings discussed with the patient. If she is stable, she will be discharged home today or _early in the morning. Dr. Archer is going to follow up as an outpatient. LEVEL OF DOCUMENTATION: 15 minutes. cc: Esequiel Mckinnon MD [facility]
[2017-07-17 19:40] LABS: HEPATITIS C GENOTYPE SEE COMMENTS
[2017-07-17] MEDS: SEROQUEL PO SCH (20:36)
[2017-07-18] MEDS: NS 1,000 ML IV SCH (04:03)
[2017-07-18] MEDS: PROTONIX IV SCH (05:51)
[2017-07-18] MEDS: SODIUM CHLORIDE 0.9% INJ SCH ×2 (05:51)
[2017-07-18] MEDS: DEMEROL IV PRN (05:52)
[2017-07-18] MEDS: PHENERGAN IV PRN (05:52)
[2017-07-18] MEDS: DULCOLAX PR SCH (09:48)
[2017-07-18] MEDS: CULTURELLE PO SCH (09:48)
[2017-07-18 14:44] VITALS: BP 118/68
--- NOTE | 2017-07-19 11:11 | DISCHARGE SUMMARY ---
ADMISSION DATE: 07/10/2017 DISCHARGE DATE: 07/18/2017 DISCHARGE DIAGNOSES: 1. Elevated liver function tests due to recent conversion now for hepatitis C, genotype 2, viral load 750,000. Liver biopsy showed hepatic fibrosis with fatty liver. 2. Metabolic syndrome. 3. Acid reflux disease. 4. Surgical menopause. 5. Chronic pelvic floor dysfunction. 6. Irritable bowel syndrome with constipation. 7. History of substance abuse. 8. History of noncompliance. 9. History of kidney stones recently on the left side by Dr. Ordonez. 10.Incontinence of urine. 11.History of bipolar disorder. CONSULTS: Dr. Anat Archer. PROCEDURES: 1. EGD with findings of mild gastroparesis, portal gastropathy, normal duodenum, mild reflux esophagitis. 2. Liver biopsy, periportal chronic inflammation and grade 1/4 periportal fibrosis. 3. Gastric emptying study, upper normal gastric emptying halftime, 89 minutes. 4. Abdominal ultrasound with mild fatty changes of the liver. BRIEF HISTORY: Please see the H and P that was done on 07/10/2017. In brief, she is a 36-year- old white female with the above problems, who was admitted with nausea, vomiting, abdominal pain from my office. The patient was found to have elevated liver function tests. There were no signs of active GI bleeding. GI consult was obtained. Further workup revealed she developed early fibrosis of the liver due to recent hepatitis C conversion, genotype 2 with a viral load of 750,000. Results were discussed with the patient as well as her mother. She is going to plan to see Dr. Archer as an outpatient for treatment for hepatitis C. LABORATORY DATA: CBC: White cell count 9.1, hematocrit 36, platelets 273. PT 10, INR 1.0. SMA- 7: Sodium 140, potassium 4.3, chloride 105, BUN 4, creatinine 0.7. LFTs were consistently high. Urine tox screen was negative. SEBASTIÁN was negative. Hepatitis panel was reactive to hepatitis C. HIV was negative. Genotype 2. Vital load is 767,000. DISCHARGE INSTRUCTIONS: Estradiol 2 mg at bedtime, warfarin 1 mg at bedtime, Linzess 290 mcg daily, Seroquel 200 daily, Zebeta 5 mg daily, Prilosec 40 daily, Trileptal 300 p.o. b.i.d., Paxil 30 mg daily, Phenergan as needed. FOLLOWUP: Follow up with Dr. Archer for maintenance treatment for hepatitis C. Follow up with psychiatrist, Dr. Butler. cc: Esequiel Mckinnon MD
== END 2017-07-18 16:10 | disposition home or self-care (01) ==
LOC: 3N 20:24
PROVIDERS: ADMIT Internal Medicine; ATTEND Internal Medicine